=== PATIENT | male | born 1995 | race Caucasian/White ===

== ENCOUNTER 2023-06-05 11:57 | Outpatient (REF) | payer OTHER, SELFPAY ==
[2023-06-06 13:02] LABS: Influenza A PCR NEGATIVE (Negative); Influenza B PCR NEGATIVE (Negative); Resp Syncy Virus RNA Qual PCR NEGATIVE (Negative); SARS COV2 PCR INHOUSE NEGATIVE (Negative)
== END 2023-06-05 11:58 | disposition home or self-care (01) ==
LOC: HO.LAB 11:57
PROVIDERS: Visit Provider Internal Medicine
DX: Z11.52 Encounter for screening for COVID-19 (principal); Z20.822 Contact with and (suspected) exposure to COVID-19; R43.9 Unspecified disturbances of smell and taste
CPT/HCPCS: 0241U

== ENCOUNTER 2023-06-05 14:11 | Outpatient (AMB) | payer OTHER, SELFPAY ==
--- NOTE | 2023-06-05 14:36 | AM.OFFWIN_ITS ---
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 Pt states he has body chills, nauseousness and vomiting today. 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 Patient is reporting symptoms of diarrhea and abdominal discomfort. Frequent bowel movements including tenesmus. In addition patient is also complaining of some sinus congestion and postnasal drip. PFSH Social History Patient Tobacco Use Status: Never used Tobacco Physical Exam Vital Signs: Last Vital Signs Temp 98.4 F 06/05/23 15:22 Pulse 110 H 06/05/23 15:22 BP 124/70 06/05/23 15:22 Pulse Ox 98 06/05/23 15:22 Oxygen Delivery Method Room Air 06/05/23 15:22 BMI result Body Mass Index 27.4 Const General: cooperative and healthy appearing Nutritional Appearance: well nourished Orientation/consciousness: patient oriented x3 Limitations: no limitations HEENT Head: Yes normal to inspection Eyes General: appearance normal, both eyes and all related structures Neck Neck: Yes normal visual inspection Chest Chest palpation & inspection: normal palpation of entire chest wall Resp Effort & Inspection: normal respiratory effort Neuro General: patient oriented x3 Assessment & Plan Assessment & Plan (1) Gastroenteritis: Code(s): K52.9 - Noninfective gastroenteritis and colitis, unspecified Plan: COVID testing done. Will call with the results. Empirical use of ciprofloxacin. If symptoms do not improve follow-up here. Orders: Orders SARS-CoV2/FLU/RSV 06/06/23 R43.9 - Unspecified disturbances of smell and taste Medications: New ondansetron 4 mg PO Q8H 14 tabs 0RF ciprofloxacin HCl 250 mg PO BID 10 tabs 0RF Coding Level of Care Code Est Pt Level 3 (73715) Diagnoses Gastroenteritis K52.9
[2023-06-05 15:22] VITALS: BP 124/70; PULSE 110; TEMP 36.9; O2SAT 98; BMI 27.4
== END 2023-06-05 16:26 | disposition home or self-care (01) ==
PROVIDERS: PCP Internal Medicine; Visit Provider Internal Medicine
DX: K52.9 Noninfective gastroenteritis and colitis, unspecified (principal)
CPT/HCPCS: 99213

== ENCOUNTER 2024-02-10 15:46 | Outpatient (REF) | payer OTHER, SELFPAY ==
[2024-02-11 11:02] LABS: Influenza A PCR NEGATIVE (Negative); Influenza B PCR NEGATIVE (Negative); Resp Syncy Virus RNA Qual PCR NEGATIVE (Negative); SARS COV2 PCR INHOUSE NEGATIVE (Negative)
== END 2024-02-10 15:47 | disposition home or self-care (01) ==
LOC: HO.LAB 15:46
PROVIDERS: Visit Provider Physician Assistant
DX: J06.9 Acute upper respiratory infection, unspecified (principal)
CPT/HCPCS: 0241U

== ENCOUNTER 2024-02-10 15:46 | Outpatient (AMB) | payer OTHER, SELFPAY ==
--- OUTSIDE RECORDS SUMMARY | 2024-02-10 15:47 | XMS_ITS | Continuity of Care Document ---
Author Organization [facility] ter Address [address] [place] [id number]- Care Team Providers Care Clinical Leader Name Role Phone Kari White MD Primary Care Physician Encounter [facility] Date(s): 11/12/20 - 11/12/[address] [address]- Discharge Disposition: A-D/C Home Attending Physician: Nigel Dietrich MD Admitting Physician: Nigel Dietrich MD Referring Physician: Not on Staff, Referring MD Allergies, Adverse Reactions, Alerts Substance Reaction Severity Status NKA Active Immunizations Given and Recorded Vaccine Date Status Refusal Reason Measles/Mumps/Rubella Virus Vaccine 01/20/01 Given Measles/Mumps/Rubella Virus Vaccine 10/11/97 Given Poliovirus Vaccine, Inactivated 01/20/01 Given Poliovirus Vaccine, Inactivated 05/13/97 Given Poliovirus Vaccine, Inactivated 03/13/97 Given Poliovirus Vaccine, Inactivated 96 Given Diphth/Pertussis, Whl Cell/Tet(oldterm) 01/20/01 G iven Diphth/Pertussis, Whl Cell/Tet(oldterm) 07/11/98 G iven Diphth/Pertussis, Whl Cell/Tet(oldterm) 05/13/97 G iven Diphth/Pertussis, Whl Cell/Tet(oldterm) 03/13/97 G iven Diphth/Pertussis, Whl Cell/Tet(oldterm) 96 G iven Haemophilus B Conj Vaccine (oldterm) 07/11/98 Give n Haemophilus B Conj Vaccine (oldterm) 05/13/97 Give n Haemophilus B Conj Vaccine (oldterm) 03/13/97 Give n Haemophilus B Conj Vaccine (oldterm) 96 Give n Varicella Virus Vaccine 10/11/97 Given Hepatitis B Vaccine (old term) 05/13/97 Given Hepatitis B Vaccine (old term) 96 Given Hepatitis B Vaccine (old term) 96 Given Medications clonazePAM 1 mg oral tablet 1 tablet = 1 mg, By Mouth, 2 times a day, PRN Anxiety, # 60 tablet, 0 Refills, Maintenance, 04/02/18 9:27:34 EST, Tablet Start Date: 04/02/18 Stop Date: 05/02/18 Status: Ordered LaMICtal 100 mg oral tablet 100 mg, 1, tablet, By Mouth, Daily, Start taking this 100mg tablet one tab daily, after finishing supply of 25mg tabs., # 30 tablet, Refills 0, Tot. Refills 0, Maintenance, 04/02/18 8:45:55 EST, Do Not Route Start Date: 04/02/18 Stop Date: 05/02/18 Status: Ordered LaMICtal 25 mg oral tablet See Instructions, Take 3 tabs daily (75mg) for one week and then increase to 100mg daily (separate Rx), # 21 tablet, Refills 0, Tot. Refills 0, Maintenance, 04/02/18 8:44:55 EST, Instructions ReplaceRequired Details, Do Not Route Start Date: 04/02/18 Status: Ordered SEROquel 50 mg oral tablet See Instructions, 1/2 to 1 full tab PO three times daily as needed for anxiety, # 90 tablet, 0 Refills, Maintenance, 04/02/18 9:28:13 EST, Tablet Start Date: 04/02/18 Status: Ordered traZODone 100 mg oral tablet 150 mg, 1.5, tablet, By Mouth, Daily at bedtime, PRN, 150mg daily as needed for insomnia, # 45 tablet, Refills 0, Tot. Refills 0, Maintenance, Sleep, 04/02/18 8:44:06 EST, Do Not Route Start Date: 04/02/18 Stop Date: 05/02/18 Status: Ordered Results Radiology Reports * Exam Date Time Procedure Performing Provider Status 11/12/20 5:49 PM Chest 2 Views Frontal and Lat Grace Paniagua; Auth (Verified) Notes: (Chest 2 Views Frontal and Lat) Reason For Exam: syncope;Other: RESULT: Chest 2 Views Frontal and Lat Chest 2 Views Frontal and Lat Hx of Present Illness: Pt report that he was on the treadmil w ing 8 mins she felt weird like hisBlood sugar was dropping, states that on his way out the building he woke up on the ground unsure how long he was out for, later he passed out again, then notice brusing to face,; Reason: Other:; syncope; Clinical Question(s): CHF COMPARISON: None. FINDINGS: LINES AND TUBES: None. LUNGS AND PLEURA: Clear lungs. Normal pulmonary vascularity. No pleural effusion. No pneumothorax. HEART, MEDIASTINUM AND MAGDALENA: Heart is normal in size. Normal upper mediastinal and hilar contour. BONES AND SOFT TISSUES: No acute abnormality. IMPRESSION: No acute abnormality. WSN: [id number] Ordering Physician: Ale Solis Dictated By: Rajendra Winter MD Dictated Date/Time: 11/12/20 6:05 pm Reviewed By: Rajendra Winter MD Signed By: Rajendra Winter MD Signed Date/Time: 11/12/20 6:05 pm Transcribed By: ARMANDO Transcribed Date/Time: 11/12/20 6:05 pm Vital Signs Most recent to oldest [Reference Range]: 1 2 Height 182 cm (11/12/20 5:13 PM) 182 cm (11/12/20 4:15 PM) Oxygen Saturation [94-100 %] 99 % (11/12/20 6:53 PM) 99 % (11/12/20 4:15 PM) Pulse Rate [55-90 bpm] 68 bpm (11/12/20 6:53 PM) 110 bpm *H* (11/12/20 4:15 PM) Blood Pressure [90-138/55-84 mm Hg] 113/ 68mm Hg (11/12/20 6:53 PM) 146/75mm Hg *H* (11/12/20 4:15 PM) Respiratory Rate [16-30 br/min] 19 br/mi n (11/12/20 6:53 PM) 17 br/min (11/12/20 4:15 PM) Temperature [96.8-100.4 DegF] 98.0 DegF (11/12/20 5:13 PM) 98.1 DegF (11/12/20 4:15 PM) Mode of Delivery (Oxygen) Room air (11/12/20 6:53 PM) Room air (11/12/20 4:15 PM) Blood pressure sites Arm, left (11/12/20 6:53 PM) Arm, left (11/12/20 4:15 PM) Temperature Route Oral (11/12/20 5:13 PM) Oral (11/12/20 4:15 PM)
--- NOTE | 2024-02-10 15:59 | MHC.OFFWIV ---
Intake Vital Signs 02/10/24 16:00 Height 5 ft 10 in Weight 210 lb 4 oz BMI 30.2 BP 122/72 Blood Pressure Location Rt brachial Position Sitting Pulse 108 H Pulse Source Pulse Oximeter Temp 100 F Temp Source Oral Pulse Oximetry (%) 98 Oxygen Delivery Method Room Air Intake Visit Reasons: EP Fever 102, headache Intake Note: Patient is here today for sick visit complaint of 102 fever, headaches, no coughing, no congestion, no nausea . Ongoing for 02/07/24, OTC is not helping with fever or headaches. Home covid testing neg. 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 He denies any nausea, vomiting, diarrhea, cough or shortness of breath. He tells me he did test at home for COVID twice and was negative each time. He states he has been taking NyQuil to sleep and has been managing his fevers and body aches with Tylenol and ibuprofen. Tells me that his fevers do come down with Tylenol to around 100 degrees F. he tells me he does work at [employer] so has many exposures. He states he is not eating much but he is able to drink and he has been drinking Gatorade and water. [facility] Social History Patient Tobacco Use Status: Never used Tobacco Review of Systems Const All systems reviewed & are unremarkable except as noted in HPI and below Physical Exam Vital Signs: Last Vital Signs Temp 100 F 02/10/24 16:00 Pulse 108 H 02/10/24 16:00 BP 122/72 02/10/24 16:00 Pulse Ox 98 02/10/24 16:00 Oxygen Delivery Method Room Air 02/10/24 16:00 BMI result Body Mass Index 30.2 Const General: cooperative, healthy appearing, comfortable and no acute distress Orientation/consciousness: patient oriented x3 Limitations: no limitations HEENT Head: Yes normal to inspection Ears: hearing grossly normal bilaterally, external ears normal and TM's normal bilaterally General nose exam: Normal external nose present, Normal nares present and No nasal discharge present Face and sinus: Yes normal facial exam and Yes sinuses nontender Mouth: Normal oral and palatal mucosa present and moist mucous membranes Throat: Yes tonsils normal, Yes uvula midline and Yes posterior oropharynx abnormal (Erythema) Eyes General: appearance normal, both eyes and all related structures Neck Neck: Yes normal visual inspection Resp Effort & Inspection: normal respiratory effort, able to speak in complete sentences, no respiratory distress, not tachypneic, no tripod positioning and no use of accessory muscles Auscultation: clear to auscultation bilaterally Cardio Rate: regular rate Rhythm: regular rhythm Heart sounds: normal S1 and S2 Skin General skin exam: no rashes or lesions noted Neuro General: patient oriented x3 Extrem General: Yes normal to inspection and Yes no clubbing, cyanosis or edema Assessment & Plan Assessment & Plan (1) URI (upper respiratory infection): Code(s): J06.9 - Acute upper respiratory infection, unspecified Qualifiers: URI type: unspecified URI Qualified Code(s): J06.9 - Acute upper respiratory infection, unspecified Plan: Patient is slightly tachycardic however it appears he was tachycardic the last time he. It is only at 110BPM, he is able to stay hydrated but I did review with him on the importance of staying well hydrated with fevers and insensible losses. This is likely a viral syndrome so recommended patient keep treating himself with over the counter medications to treat his symptoms. Gave him red flag warning signs and when to go to the emergency. Sent flu COVID and RSV testing. Plan See above Orders: Orders SARS-CoV2/FLU/RSV Today J06.9 - Acute upper respiratory infection, unspecified Coding Level of Care Code New Pt Level 3 (09765) Diagnoses Upper respiratory tract infection, unspecified type J06.9 URI type: unspecified URI
[2024-02-10 16:00] VITALS: BP 122/72; PULSE 108; TEMP 37.7; O2SAT 98; BMI 30.2
== END 2024-02-10 16:40 | disposition home or self-care (01) ==
PROVIDERS: Visit Provider Physician Assistant
DX: J06.9 Acute upper respiratory infection, unspecified (principal)

== ENCOUNTER 2024-02-12 09:09 | Outpatient (AMB) | payer OTHER, SELFPAY ==
--- NOTE | 2024-02-12 09:10 | MHC.OFFWIV ---
Intake Vital Signs 02/12/24 09:12 Height 5 ft 10 in Weight 205 lb BMI 29.4 BP 108/60 Blood Pressure Location Rt brachial Position Sitting Pulse 110 H Pulse Source Pulse Oximeter Temp 99.4 F Temp Source Oral Pulse Oximetry (%) 97 Oxygen Delivery Method Room Air Intake Visit Reasons: EP New rash, cough, work note Intake Note: Patient here for persistent fever, cough, rash on face and loss of appetite which all started last Saturday. Patient Tobacco Use Status: Never used Tobacco Allergies No Known Allergies [No Known Allergies*] Allergy (Verified 02/12/24 09:13) Do you need a note to return to daycare/school/sports/work: Yes HPI HPI Comments History of Present Illness Details Patient is a 28-year-old male complaining of a new rash on his face for the last 5 days. He has been sick for the last week with a viral syndrome, he has had fevers but he tells me the fevers broke and he has been feeling better. He states the rash is not itchy nor is it painful, he has not applied any creams or taken any Benadryl to see if it helps. He has been taking Robitussin but he started taking that after the rash came out, denies any other new medications. He states his appetite is a little bit reduced because he has some nausea and was dry heaving this morning. He tells me he has been trying to stay well hydrated but it has been difficult because of his lack of appetite. PFSH Social History Patient Tobacco Use Status: Never used Tobacco Review of Systems Const All systems reviewed & are unremarkable except as noted in HPI and below Physical Exam Vital Signs: Last Vital Signs Temp 99.4 F 02/12/24 09:12 Pulse 110 H 02/12/24 09:12 BP 108/60 02/12/24 09:12 Pulse Ox 97 02/12/24 09:12 Oxygen Delivery Method Room Air 02/12/24 09:12 BMI result Body Mass Index 29.4 Const General: cooperative, healthy appearing, comfortable, no acute distress and well developed Orientation/consciousness: patient oriented x3 Limitations: no limitations HEENT Head: Yes normal to inspection Ears: hearing grossly normal bilaterally General nose exam: Normal external nose present Face and sinus: Yes normal facial exam Eyes General: appearance normal, both eyes and all related structures Neck Neck: Yes normal visual inspection and Yes full ROM Resp Effort & Inspection: normal respiratory effort and able to speak in complete sentences Skin General skin exam: no rashes or lesions noted Neuro General: patient oriented x3 Extrem General: Yes normal to inspection Assessment & Plan Assessment & Plan (1) Viral rash: Code(s): B09 - Unspecified viral infection characterized by skin and mucous membrane lesions Plan: The rash in the nausea and the fevers are all likely related to a viral illness. Patient's vital signs are stable, he is always somewhat slightly tachycardic, did review the importance of staying well hydrated with him. I will send some Zofran to his pharmacy so he can try to increase his intake of fluids and food. As he is feeling better overall, recommended he continue doing what he is doing and wrote a work note for today and tomorrow, as he requested. He was evaluated in this clinic last week and tested negative for flu COVID and RSV. (2) Fever: Code(s): R50.9 - Fever, unspecified Qualifiers: Fever type: unspecified Qualified Code(s): R50.9 - Fever, unspecified Plan: See above (3) Nausea: Code(s): R11.0 - Nausea Plan: See above Plan See above Medications: New ondansetron 4 mg PO Q8H PRN 10 tabs 0RF nausea and vomiting Coding Level of Care Code New Pt Level 3 (29319) Diagnoses Viral rash B09 Fever, unspecified fever cause R50.9 Fever type: unspecified Nausea R11.0
[2024-02-12 09:12] VITALS: BP 108/60; PULSE 110; TEMP 37.4; O2SAT 97; BMI 29.4
== END 2024-02-12 09:33 | disposition home or self-care (01) ==
PROVIDERS: Visit Provider Physician Assistant
DX: R50.9 Fever, unspecified (principal); R11.0 Nausea; B09 Unspecified viral infection characterized by skin and mucous membrane lesions